=== PATIENT | male | born 1945 | race African-American/Black ===

== ENCOUNTER 2018-08-18 08:58 | Inpatient (IN) | payer BC, MEDICAID ==
[2018-08-18] VITALS (7 sets, daily range): BP systolic 110–158; BP diastolic 64–76
[~2018-08-18] VITALS: Ht 175.3 cm; Wt 61.2 kg
[2018-08-18] MEDS ORDERED: ALBUTEROL (0.083%) 2.5MG/3ML NEB HHN STA (09:03)
[2018-08-18] MEDS ORDERED: MAGNESIUM 2 G PREMIX 50 ML IV STA (09:03)
[2018-08-18] MEDS ORDERED: METHYLPREDNISOLONE SOD SUCC 125 MG/2 ML VIAL IV STA (09:03)
[2018-08-18] MEDS ORDERED: IPRATROPIUM BROMIDE (0.02%) 0.5MG/2.5ML NEB HHN STA (09:03)
[2018-08-18 09:18] LABS: HEMATOCRIT. 28.6 % (42.0-52.0); HEMOGLOBIN. 8.6 g/dL (14.0-18.0); MEAN CORPUSCULAR HEMOGLOBIN 19.7 pg (28.0-32.0); MEAN CORPUSCULAR VOLUME 65.5 fL (80.0-94.0); MEAN PLATELET VOLUME 7.2 fl (7.4-10.4); PLATELET 412 x1000/uL (130-400); RED BLOOD CELL COUNT 4.37 mill/uL (4.7-6.1); RED CELL DISTRIBUTION WIDTH 21.4 % (11.6-14.6)
[2018-08-18 09:26] LABS: CHLORIDE 105 mEq/L (98-107)
[2018-08-18 09:31] LABS: ETHANOL BLOOD < 10 mg/dL
[2018-08-18 09:53] LABS: BG BASE EXCESS -7.4 mmol/L (-2.0-2.0); BG BILEVEL POS AIRWAY PRESSURE 15/5; BG CARBOXYHEMOGLOBIN 0.3 % (0.5-1.5); BG DEOXYHEMOGLOBIN 2.2 % (0.0-5.0); BG METHEMOGLOBIN 0.2 % (0.0-1.5); BG OXYGEN SATURATION 97.8 % (92.0-98.5); BG OXYHEMOGLOBIN 97.3 % (94.0-97.0); BG PCO2 25.6 mmHg (35.0-45.0); BG PH 7.415 (7.350-7.450); BG PO2 115.8 mmHg (75.0-100.0); BG SAMPLE SITE RIGHT RADIAL; BG TOTAL HEMOGLOBIN 9.2 g/dL (12.0-18.0); BG VENT MODE MASK - BIPAP; BG VENT RATE 16 set
[2018-08-18 09:54] LABS: PLATELET ESTIMATE INCREASED
[2018-08-18] MEDS ORDERED: LEVOFLOXACIN 750MG PREMIX 150 ML IV ONE ×2 (12:00→14:00)
[2018-08-18 14:31] LABS: BG BASE EXCESS -8.2 mmol/L (-2.0-2.0); BG BILEVEL POS AIRWAY PRESSURE ST=15/5; BG CARBOXYHEMOGLOBIN 0.5 % (0.5-1.5); BG DEOXYHEMOGLOBIN 3.4 % (0.0-5.0); BG FRACTION INSPIRED OXYGEN 50; BG HCO3 ACT 15.1 mmol/L (22.0-26.0); BG METHEMOGLOBIN 0.2 % (0.0-1.5); BG OXYGEN SATURATION 96.6 % (92.0-98.5); BG OXYHEMOGLOBIN 95.9 % (94.0-97.0); BG PCO2 24.1 mmHg (35.0-45.0); BG PH 7.416 (7.350-7.450); BG PO2 94.3 mmHg (75.0-100.0); BG PRESSURE SUPPORT 10; BG SAMPLE SITE LEFT BRACHIAL; BG TOTAL HEMOGLOBIN 8.6 g/dL (12.0-18.0); BG VENT MODE MASK - BIPAP; BG VENT RATE 16 set
[2018-08-18] MEDS: LEVOFLOXACIN 750MG PREMIX 150 ML IV SCH (15:48)
[2018-08-18] MEDS ORDERED: ONDANSETRON HCL 4MG/2ML INJ IV PRN (18:45)
[2018-08-18] MEDS ORDERED: DOCUSATE SODIUM 100MG CAPSULE PO PRN (18:45)
[2018-08-18] MEDS ORDERED: ACETAMINOPHEN 650MG SUPP PR PRN (18:45)
[2018-08-18] MEDS ORDERED: DIPHENHYDRAMINE 50MG/ML VIAL IV PRN (18:45)
[2018-08-18] MEDS ORDERED: MAGNESIUM/ALUMINUM HYDROXIDE/SIMETHICONE 30ML UDC PO PRN (18:45)
[2018-08-18] MEDS ORDERED: PIPERACILLIN/TAZ 3.375G PREMIX 50 ML IV SCH (18:45)
[2018-08-18] MEDS ORDERED: NA PHOS,M-B/NA PHOS,DI-BA ENEMA 118ML PR PRN (18:45)
[2018-08-18] MEDS ORDERED: IPRATROPIUM/ALBUTEROL 0.5-3(2.5)MG/3ML NEB INH PRN (18:45)
[2018-08-18] MEDS ORDERED: CLONIDINE 0.1MG TABLET PO PRN (18:45)
[2018-08-18] MEDS ORDERED: ACETAMINOPHEN 650MG/20.3ML UDC GT PRN (18:45)
[2018-08-18] MEDS ORDERED: GUAIFENESIN 200MG/10ML SUGAR FREE UDC PO PRN (18:45)
[2018-08-18] MEDS ORDERED: ENOXAPARIN 40MG/0.4ML SYR SUBCUT SCH (20:00)
[2018-08-18] MEDS: PIPERACILLIN/TAZ 2.25G PREMIX 50 ML IV SCH (20:32)
[2018-08-18] MEDS: SODIUM CHLORIDE 0.9% INJ 3ML FLUSH IVF SCH (20:32)
[2018-08-18] MEDS: GUAIFENESIN 600MG ER TABLET PO SCH (20:32)
[2018-08-19] VITALS (12 sets, daily range): BP systolic 111–141; BP diastolic 60–81
[2018-08-19] MEDS: IPRATROPIUM/ALBUTEROL 0.5-3(2.5)MG/3ML NEB INH SCH ×4 (02:31→20:22)
[2018-08-19] MEDS: PIPERACILLIN/TAZ 2.25G PREMIX 50 ML IV SCH ×3 (04:44→20:51)
[2018-08-19] MEDS: SODIUM CHLORIDE 0.9% INJ 3ML FLUSH IVF SCH ×3 (06:00→20:51)
[2018-08-19 06:28] LABS: HEMATOCRIT. 24.9 % (42.0-52.0); HEMOGLOBIN. 7.7 g/dL (14.0-18.0); MEAN CORPUSCULAR HEMOGLOBIN 19.9 pg (28.0-32.0); MEAN CORPUSCULAR VOLUME 64.7 fL (80.0-94.0); MEAN PLATELET VOLUME 7.3 fl (7.4-10.4); PLATELET 347 x1000/uL (130-400); RED BLOOD CELL COUNT 3.85 mill/uL (4.7-6.1); RED CELL DISTRIBUTION WIDTH 21.3 % (11.6-14.6)
[2018-08-19 07:15] LABS: CHLORIDE 106 mEq/L (98-107)
[2018-08-19 07:37] LABS: LDL CHOLESTEROL 27 mg/dL (5-100)
[2018-08-19 07:39] LABS: HDL CHOLESTEROL 19 mg/dL (40-59)
[2018-08-19] MEDS: GUAIFENESIN 600MG ER TABLET PO SCH ×2 (08:47→20:51)
[2018-08-19] MEDS: MORPHINE SULFATE 2 MG/ML CPJ (NOT FOR IM USE) IV PRN (09:24)
[2018-08-19 12:14] LABS: CLARITY URINE CLEAR (CLEAR); COLOR URINE YELLOW (YELLOW); KETONES URINE NEGATIVE (NEGATIVE); LEUKOCYTE ESTERASE URINE NEGATIVE (NEGATIVE); NITRITE URINE NEGATIVE (NEGATIVE); OCCULT BLOOD URINE NEGATIVE (NEGATIVE); PROTEIN URINE NEGATIVE (NEGATIVE); SPECIFIC GRAVITY URINE 1.021 (1.005-1.030); UROBILINOGEN URINE 0.2 E.U./dL (0.2-1.0)
[2018-08-19 12:50] LABS: *AMPHETAMINES SCREEN URINE NEGATIVE (NEGATIVE); *BARBITURATES SCREEN URINE NEGATIVE (NEGATIVE); *BENZODIAZEPINES SCREEN URINE NEGATIVE (NEGATIVE); *COCAINE SCREEN URINE PRESUMTIVE POSITIVE (NEGATIVE)
[2018-08-19 12:51] LABS: CANNABINOID URINE SCREEN NEGATIVE (NEGATIVE); METHADONE URINE SCREEN NEGATIVE (NEGATIVE); OPIATES URINE SCREEN PRESUMTIVE POSITIVE (NEGATIVE); PHENCYCLIDINE URINE SCREEN NEGATIVE (NEGATIVE)
[2018-08-19 12:59] LABS: PLATELET ESTIMATE NORMAL
[2018-08-19] MEDS: METRONIDAZOLE 500MG TABLET PO SCH ×2 (15:58→20:51)
[2018-08-19] MEDS: ENOXAPARIN 30MG/0.3ML SYR SUBCUT SCH (20:51)
[2018-08-20] VITALS (11 sets, daily range): BP systolic 107–134; BP diastolic 66–80
[2018-08-20] MEDS: ACETYLCYSTEINE 100MG/ML 10% VIAL 4ML INH SCH ×3 (00:16→16:13)
[2018-08-20] MEDS: IPRATROPIUM/ALBUTEROL 0.5-3(2.5)MG/3ML NEB INH SCH ×6 (00:16→20:34)
[2018-08-20] MEDS: SODIUM CHLORIDE 0.9% INJ 3ML FLUSH IVF SCH ×3 (05:23→22:00)
[2018-08-20] MEDS: METRONIDAZOLE 500MG TABLET PO SCH ×3 (05:24→21:28)
[2018-08-20] MEDS: PIPERACILLIN/TAZ 2.25G PREMIX 50 ML IV SCH ×3 (05:24→21:17)
[2018-08-20] MEDS: GUAIFENESIN 600MG ER TABLET PO SCH ×2 (08:16→21:17)
[2018-08-20 09:42] LABS: HEMOGLOBIN. 7.3 g/dL (14.0-18.0); MEAN CORPUSCULAR HEMOGLOBIN 19.5 pg (28.0-32.0); MEAN CORPUSCULAR VOLUME 64.2 fL (80.0-94.0); MEAN PLATELET VOLUME 7.1 fl (7.4-10.4); PLATELET 365 x1000/uL (130-400); RED BLOOD CELL COUNT 3.74 mill/uL (4.7-6.1); RED CELL DISTRIBUTION WIDTH 21.2 % (11.6-14.6)
[2018-08-20 09:52] LABS: CHLORIDE 104 mEq/L (98-107)
[2018-08-20 13:11] LABS: NUCLEATED RED BLOOD CELLS 2 /100 WBC; PLATELET ESTIMATE NORMAL
[2018-08-20] MEDS: LEVOFLOXACIN 750MG PREMIX 150 ML IV SCH (15:50)
[2018-08-20 18:21] LABS: PROSTRATE SPECIFIC AG TOTAL 0.44 ng/mL (0.0-4.0)
[2018-08-20 18:22] LABS: CARCINO EMBRYONIC ANTIGEN 1.2 ng/ml
[2018-08-20] MEDS: ENOXAPARIN 30MG/0.3ML SYR SUBCUT SCH (21:24)
[2018-08-20] MEDS: MORPHINE SULFATE 2 MG/ML CPJ (NOT FOR IM USE) IV PRN (21:29)
[2018-08-21] VITALS (16 sets, daily range): BP systolic 103–154; BP diastolic 51–99
[2018-08-21] MEDS: IPRATROPIUM/ALBUTEROL 0.5-3(2.5)MG/3ML NEB INH SCH ×6 (00:28→20:13)
[2018-08-21] MEDS: ACETYLCYSTEINE 100MG/ML 10% VIAL 4ML INH SCH ×3 (00:28→16:40)
[2018-08-21] MEDS: PIPERACILLIN/TAZ 2.25G PREMIX 50 ML IV SCH ×2 (04:51→13:05)
[2018-08-21] MEDS: SODIUM CHLORIDE 0.9% INJ 3ML FLUSH IVF SCH ×3 (05:45→21:48)
[2018-08-21] MEDS: METRONIDAZOLE 500MG TABLET PO SCH ×3 (05:45→23:41)
[2018-08-21] MEDS: GUAIFENESIN 600MG ER TABLET PO SCH ×2 (10:25→21:47)
[2018-08-21 14:49] LABS: BG CARBOXYHEMOGLOBIN 0.5 % (0.5-1.5); BG DEOXYHEMOGLOBIN 11.4 % (0.0-5.0); BG FRACTION INSPIRED OXYGEN 21; BG METHEMOGLOBIN 0.4 % (0.0-1.5); BG OXYGEN SATURATION 88.5 % (92.0-98.5); BG OXYHEMOGLOBIN 87.7 % (94.0-97.0); BG PCO2 29.1 mmHg (35.0-45.0); BG PH 7.476 (7.350-7.450); BG PO2 57.6 mmHg (75.0-100.0); BG SAMPLE SITE RIGHT RADIAL; BG TOTAL HEMOGLOBIN 8.9 g/dL (12.0-18.0); BG VENT MODE ROOM AIR
[2018-08-21] MEDS: ENOXAPARIN 30MG/0.3ML SYR SUBCUT SCH (21:48)
[2018-08-21] MEDS: ACETAMINOPHEN 325MG TABLET PO PRN (21:59)
[2018-08-21] MEDS ORDERED: LEVOFLOXACIN 750MG PREMIX 150 ML IV SCH (23:00)
[2018-08-22] VITALS: BP 77/53
[2018-08-22] MEDS: PIPERACILLIN/TAZ 3.375G PREMIX 50 ML IV SCH ×4 (01:08→22:59)
[2018-08-22 02:00] VITALS: BP 124/59
[2018-08-22] MEDS: HYDROCODONE/ACETAMINOPHEN 5/325MG TABLET PO PRN ×3 (03:36→14:14)
[2018-08-22 04:00] VITALS: BP 113/57
[2018-08-22] MEDS: IPRATROPIUM/ALBUTEROL 0.5-3(2.5)MG/3ML NEB INH SCH ×6 (04:03→20:43)
[2018-08-22 06:00] VITALS: BP 103/52
[2018-08-22] MEDS: SODIUM CHLORIDE 0.9% INJ 3ML FLUSH IVF SCH ×3 (06:01→21:16)
[2018-08-22] MEDS: METRONIDAZOLE 500MG TABLET PO SCH ×3 (06:02→21:16)
[2018-08-22] MEDS: ACETYLCYSTEINE 100MG/ML 10% VIAL 4ML INH SCH ×3 (08:00→15:10)
[2018-08-22 09:32] LABS: BASOPHILS % 0.1 % (0.0-2.0); EOSINOPHILS % 0.7 % (0.0-5.0); HEMATOCRIT. 25.7 % (42.0-52.0); HEMOGLOBIN. 7.8 g/dL (14.0-18.0); LYMPHOCYTES % 7.2 % (20.0-50.0); MEAN CORPUSCULAR HEMOGLOBIN 19.8 pg (28.0-32.0); MEAN CORPUSCULAR VOLUME 64.9 fL (80.0-94.0); MONOCYTES % 13.5 % (2.0-8.0); NEUTROPHILS % 78.5 % (40.0-76.0); PLATELET 419 x1000/uL (130-400); RED BLOOD CELL COUNT 3.97 mill/uL (4.7-6.1); RED CELL DISTRIBUTION WIDTH 21.3 % (11.6-14.6)
[2018-08-22] MEDS: GUAIFENESIN 600MG ER TABLET PO SCH ×2 (10:54→21:16)
[2018-08-22] MEDS: FAMOTIDINE 20MG TABLET PO NR (13:26)
[2018-08-22 20:00] VITALS: BP 119/63
[2018-08-22] MEDS: ENOXAPARIN 30MG/0.3ML SYR SUBCUT SCH (21:16)
[2018-08-22 22:00] VITALS: BP_SYST 98; BP_DIAS 29; BP_DIAS 52
[2018-08-23] VITALS (12 sets, daily range): BP systolic 93–143; BP diastolic 49–63
[2018-08-23] MEDS: IPRATROPIUM/ALBUTEROL 0.5-3(2.5)MG/3ML NEB INH SCH ×6 (00:43→20:39)
[2018-08-23] MEDS: ACETYLCYSTEINE 100MG/ML 10% VIAL 4ML INH SCH ×4 (00:43→15:55)
[2018-08-23] MEDS: SODIUM CHLORIDE 0.9% INJ 3ML FLUSH IVF SCH ×3 (05:22→21:58)
[2018-08-23] MEDS: METRONIDAZOLE 500MG TABLET PO SCH ×3 (05:23→22:01)
[2018-08-23] MEDS: GUAIFENESIN 600MG ER TABLET PO SCH ×2 (08:35→21:58)
[2018-08-23] MEDS: FAMOTIDINE 20MG TABLET PO NR (08:35)
[2018-08-23] MEDS: PIPERACILLIN/TAZ 3.375G PREMIX 50 ML IV SCH ×3 (08:36→21:58)
[2018-08-23] MEDS ORDERED: VANCOMYCIN 1250MG in DEXTROSE 5% WATER 250ML IV SCH (09:00)
[2018-08-23] MEDS: ACETAMINOPHEN 325MG TABLET PO PRN ×2 (11:39→19:24)
[2018-08-23 12:18] LABS: HEMOGLOBIN. 7.6 g/dL (14.0-18.0); MEAN CORPUSCULAR HEMOGLOBIN 19.6 pg (28.0-32.0); MEAN CORPUSCULAR VOLUME 64.1 fL (80.0-94.0); MEAN PLATELET VOLUME 6.8 fl (7.4-10.4); PLATELET 418 x1000/uL (130-400); RED CELL DISTRIBUTION WIDTH 21.6 % (11.6-14.6)
[2018-08-23 12:31] LABS: CHLORIDE 100 mEq/L (98-107)
[2018-08-23 16:22] LABS: PLATELET ESTIMATE INCREASED
[2018-08-23] MEDS: ENOXAPARIN 30MG/0.3ML SYR SUBCUT SCH (20:00)
[2018-08-23] MEDS ORDERED: VANCOMYCIN 750 MG PREMIX 150 ML IV SCH (21:00)
[2018-08-23] MEDS: VANCOMYCIN 1 G PREMIX 200 ML IV SCH (21:57)
[2018-08-24] VITALS (10 sets, daily range): BP systolic 81–120; BP diastolic 45–69
[2018-08-24] MEDS: IPRATROPIUM/ALBUTEROL 0.5-3(2.5)MG/3ML NEB INH SCH ×7 (00:52→23:41)
[2018-08-24] MEDS: METRONIDAZOLE 500MG TABLET PO SCH ×3 (05:43→21:55)
[2018-08-24] MEDS: PIPERACILLIN/TAZ 3.375G PREMIX 50 ML IV SCH ×2 (05:43→16:15)
[2018-08-24] MEDS: SODIUM CHLORIDE 0.9% INJ 3ML FLUSH IVF SCH ×3 (05:44→22:07)
[2018-08-24] MEDS: ACETYLCYSTEINE 100MG/ML 10% VIAL 4ML INH SCH ×2 (07:41→15:45)
[2018-08-24] MEDS: GUAIFENESIN 600MG ER TABLET PO SCH ×2 (08:34→21:55)
[2018-08-24] MEDS: VANCOMYCIN 1 G PREMIX 200 ML IV SCH ×2 (08:34→21:55)
[2018-08-24] MEDS: FAMOTIDINE 20MG TABLET PO NR (08:34)
[2018-08-24] MEDS: ACETAMINOPHEN 325MG TABLET PO PRN (08:49)
[2018-08-24] MEDS ORDERED: PIPE3.3736 IV (15:21)
[2018-08-24] MEDS ORDERED: IPRA3AMP9 INH ×2 (15:21)
[2018-08-24] MEDS: ENOXAPARIN 30MG/0.3ML SYR SUBCUT SCH (20:00)
[2018-08-24] MEDS: HYDROCODONE/ACETAMINOPHEN 5/325MG TABLET PO PRN (22:06)
[2018-08-25] VITALS (9 sets, daily range): BP systolic 90–118; BP diastolic 46–86
[2018-08-25] MEDS: PIPERACILLIN/TAZ 3.375G PREMIX 50 ML IV SCH ×3 (02:24→14:23)
[2018-08-25] MEDS: IPRATROPIUM/ALBUTEROL 0.5-3(2.5)MG/3ML NEB INH SCH ×3 (04:26→20:35)
[2018-08-25] MEDS: SODIUM CHLORIDE 0.9% INJ 3ML FLUSH IVF SCH ×2 (06:14→21:54)
[2018-08-25] MEDS: METRONIDAZOLE 500MG TABLET PO SCH ×3 (06:14→21:53)
[2018-08-25 08:15] LABS: HIV SCREEN 4G Non Reactive (Non Reactive)
[2018-08-25] MEDS: GUAIFENESIN 600MG ER TABLET PO SCH ×2 (08:15→20:34)
[2018-08-25] MEDS: FAMOTIDINE 20MG TABLET PO NR (08:15)
[2018-08-25] MEDS: VANCOMYCIN 1 G PREMIX 200 ML IV SCH ×2 (08:15→21:53)
[2018-08-25] MEDS: ACETYLCYSTEINE 100MG/ML 10% VIAL 4ML INH SCH (08:35)
[2018-08-25] MEDS: ENOXAPARIN 30MG/0.3ML SYR SUBCUT SCH (20:34)
[2018-08-25] MEDS: ACETAMINOPHEN 325MG TABLET PO PRN (20:35)
[2018-08-26] VITALS: BP 93/55
[2018-08-26] MEDS: IPRATROPIUM/ALBUTEROL 0.5-3(2.5)MG/3ML NEB INH SCH ×6 (00:40→21:01)
[2018-08-26 04:00] VITALS: BP 106/51
[2018-08-26] MEDS: SODIUM CHLORIDE 0.9% INJ 3ML FLUSH IVF SCH ×3 (05:16→21:47)
[2018-08-26] MEDS: METRONIDAZOLE 500MG TABLET PO SCH ×2 (05:16→14:56)
[2018-08-26] MEDS: HYDROCODONE/ACETAMINOPHEN 5/325MG TABLET PO PRN ×2 (05:17→21:45)
[2018-08-26 08:03] VITALS: BP_SYST 114; BP_SYST 88; BP_DIAS 49; BP_DIAS 52
[2018-08-26] MEDS: GUAIFENESIN 600MG ER TABLET PO SCH ×2 (08:59→21:45)
[2018-08-26] MEDS: VANCOMYCIN 1 G PREMIX 200 ML IV SCH ×2 (08:59→21:48)
[2018-08-26] MEDS: FAMOTIDINE 20MG TABLET PO NR (08:59)
[2018-08-26 12:19] VITALS: BP 99/52
[2018-08-26] MEDS: CEFEPIME 2,000 MG in DEXT 5% WATER 100 ML IV SCH (16:23)
[2018-08-26 20:00] VITALS: BP 108/52
[2018-08-26] MEDS: ENOXAPARIN 30MG/0.3ML SYR SUBCUT SCH (21:47)
[2018-08-27] VITALS: BP 104/55
[2018-08-27] MEDS: IPRATROPIUM/ALBUTEROL 0.5-3(2.5)MG/3ML NEB INH SCH ×6 (00:48→22:24)
[2018-08-27 04:00] VITALS: BP 107/59
[2018-08-27] MEDS: CEFEPIME 2,000 MG in DEXT 5% WATER 100 ML IV SCH ×2 (05:14→16:08)
[2018-08-27] MEDS: SODIUM CHLORIDE 0.9% INJ 3ML FLUSH IVF SCH ×3 (05:31→22:32)
[2018-08-27 08:00] VITALS: BP 100/52
[2018-08-27] MEDS: FAMOTIDINE 20MG TABLET PO NR (09:19)
[2018-08-27] MEDS: GUAIFENESIN 600MG ER TABLET PO SCH ×2 (09:19→20:40)
[2018-08-27] MEDS: VANCOMYCIN 1 G PREMIX 200 ML IV SCH ×2 (09:25→20:48)
[2018-08-27 12:00] VITALS: BP 106/59
[2018-08-27] MEDS: METRONIDAZOLE 500 MG PREMIX 100 ML IV SCH ×2 (13:49→22:32)
[2018-08-27 16:00] VITALS: BP 100/53
[2018-08-27 20:00] VITALS: BP 105/54
[2018-08-27] MEDS: HYDROCODONE/ACETAMINOPHEN 5/325MG TABLET PO PRN (20:40)
[2018-08-27] MEDS: ENOXAPARIN 30MG/0.3ML SYR SUBCUT SCH (20:40)
[2018-08-28] VITALS: BP 103/60
[2018-08-28] MEDS: IPRATROPIUM/ALBUTEROL 0.5-3(2.5)MG/3ML NEB INH SCH ×6 (01:12→20:26)
[2018-08-28 04:00] VITALS: BP 102/55
[2018-08-28] MEDS: CEFEPIME 2,000 MG in DEXT 5% WATER 100 ML IV SCH ×2 (04:15→16:19)
[2018-08-28] MEDS: HYDROCODONE/ACETAMINOPHEN 5/325MG TABLET PO PRN ×3 (04:26→21:10)
[2018-08-28] MEDS: METRONIDAZOLE 500 MG PREMIX 100 ML IV SCH ×3 (06:23→22:45)
[2018-08-28] MEDS: SODIUM CHLORIDE 0.9% INJ 3ML FLUSH IVF SCH ×3 (06:23→22:45)
[2018-08-28 07:27] LABS: EOSINOPHILS % 0.2 % (0.0-5.0); HEMATOCRIT. 22.3 % (42.0-52.0); LYMPHOCYTES % 12.6 % (20.0-50.0); MEAN CORPUSCULAR HEMOGLOBIN 20.1 pg (28.0-32.0); MEAN CORPUSCULAR VOLUME 64.7 fL (80.0-94.0); MEAN PLATELET VOLUME 6.9 fl (7.4-10.4); MONOCYTES % 11.2 % (2.0-8.0); PLATELET 559 x1000/uL (130-400); RED BLOOD CELL COUNT 3.44 mill/uL (4.7-6.1); RED CELL DISTRIBUTION WIDTH 21.9 % (11.6-14.6)
[2018-08-28 07:45] LABS: CHLORIDE 105 mEq/L (98-107)
[2018-08-28 08:00] VITALS: BP 94/57
[2018-08-28 08:45] LABS: HEMOGLOBIN. 6.9 g/dL (14.0-18.0)
[2018-08-28] MEDS: FAMOTIDINE 20MG TABLET PO NR (09:19)
[2018-08-28] MEDS: GUAIFENESIN 600MG ER TABLET PO SCH ×2 (09:19→21:10)
[2018-08-28] MEDS: VANCOMYCIN 1 G PREMIX 200 ML IV SCH ×2 (09:24→21:11)
[2018-08-28 12:00] VITALS: BP 104/61
[2018-08-28 16:00] VITALS: BP 102/53
[2018-08-28 20:00] VITALS: BP 103/53
[2018-08-28] MEDS: ENOXAPARIN 30MG/0.3ML SYR SUBCUT SCH (21:10)
[2018-08-29] VITALS (10 sets, daily range): BP systolic 93–124; BP diastolic 48–64
[2018-08-29] MEDS: IPRATROPIUM/ALBUTEROL 0.5-3(2.5)MG/3ML NEB INH SCH ×5 (00:08→17:10)
[2018-08-29] MEDS: HYDROCODONE/ACETAMINOPHEN 5/325MG TABLET PO PRN (04:12)
[2018-08-29] MEDS: CEFEPIME 2,000 MG in DEXT 5% WATER 100 ML IV SCH ×2 (04:12→16:39)
[2018-08-29] MEDS: SODIUM CHLORIDE 0.9% INJ 3ML FLUSH IVF SCH ×2 (06:36→15:24)
[2018-08-29] MEDS: METRONIDAZOLE 500 MG PREMIX 100 ML IV SCH (06:36)
[2018-08-29 07:10] LABS: EOSINOPHILS % 0.2 % (0.0-5.0); LYMPHOCYTES % 12.9 % (20.0-50.0); MEAN CORPUSCULAR HEMOGLOBIN 19.7 pg (28.0-32.0); MEAN CORPUSCULAR VOLUME 65.5 fL (80.0-94.0); MEAN PLATELET VOLUME 6.5 fl (7.4-10.4); MONOCYTES % 10.8 % (2.0-8.0); NEUTROPHILS % 75.1 % (40.0-76.0); PLATELET 589 x1000/uL (130-400); RED BLOOD CELL COUNT 3.55 mill/uL (4.7-6.1); RED CELL DISTRIBUTION WIDTH 21.4 % (11.6-14.6)
[2018-08-29] MEDS ORDERED: HYDROCODONE/ACETAMINOPHEN 5/325MG TABLET PO PRN (07:15)
[2018-08-29 07:16] LABS: CHLORIDE 102 mEq/L (98-107)
[2018-08-29 08:05] LABS: HEMATOCRIT. 23.2 % (42.0-52.0)
[2018-08-29] MEDS: VANCOMYCIN 1 G PREMIX 200 ML IV SCH (09:35)
[2018-08-29] MEDS: GUAIFENESIN 600MG ER TABLET PO SCH (09:35)
[2018-08-29] MEDS: FAMOTIDINE 20MG TABLET PO NR (09:35)
[2018-08-29] MEDS: ACETAMINOPHEN 325MG TABLET PO PRN (13:29)
[2018-08-29] MEDS ORDERED: METRONIDAZOLE 500MG TABLET PO SCH (14:00)
[2018-08-29 17:38] LABS: HEMATOCRIT 24.4 % (42.0-52.0); HEMOGLOBIN 7.6 g/dL (14.0-18.0)
[2018-08-29 18:17] LABS: INR 1.1; PROTHROMBIN TIME 11.4 sec (9.6-11.0)
[2018-08-30 09:11] LABS: QFT MITOGEN VALUE 1.12 IU/mL (.); QFT TB GOLD PLUS Positive (Negative); QFT TB1 AG VALUE 4.42 IU/mL (.)
== END 2018-08-29 21:08 | DRG 917 ==
LOC: ER 08:58 → 5EST 09:25 → EDBEDREQ 09:54 → EDBEDREQTM 09:54 → ENRESERV 10:34 → 5WST 08-25 17:22
PROVIDERS: ADMIT Family Medicine; ATTEND Family Medicine
PROC: 5A09357 Assistance with Respiratory Ventilation, Less than 24 Consecutive Hours, Continuous Positive Airway Pressure (ICD-10-PCS; principal; 2018-08-18)
PROC: 5A09357 Assistance with Respiratory Ventilation, Less than 24 Consecutive Hours, Continuous Positive Airway Pressure (ICD-10-PCS; 2018-08-19)
PROC: 5A09357 Assistance with Respiratory Ventilation, Less than 24 Consecutive Hours, Continuous Positive Airway Pressure (ICD-10-PCS; 2018-08-23)
PROC: 5A09357 Assistance with Respiratory Ventilation, Less than 24 Consecutive Hours, Continuous Positive Airway Pressure (ICD-10-PCS; 2018-08-24)
DX: T40.5X1A Poisoning by cocaine, accidental (unintentional), initial encounter (principal); A41.9 Sepsis, unspecified organism; E43 Unspecified severe protein-calorie malnutrition; J96.01 Acute respiratory failure with hypoxia; N17.9 Acute kidney failure, unspecified; I50.40 Unspecified combined systolic (congestive) and diastolic (congestive) heart failure; J68.0 Bronchitis and pneumonitis due to chemicals, gases, fumes and vapors; J98.11 Atelectasis; Z68.1 Body mass index [BMI] 19.9 or less, adult; D63.8 Anemia in other chronic diseases classified elsewhere; I11.0 Hypertensive heart disease with heart failure; F14.90 Cocaine use, unspecified, uncomplicated; F17.210 Nicotine dependence, cigarettes, uncomplicated; Z78.9 Other specified health status; Z71.89 Other specified counseling
CPT/HCPCS: 36415; 36600; 71045; 71250; 80048; 80061; 80202; 80305; 80320; 82105; 82375; 82378; 82805; 83880; 84153; 84484; 85014; 85018; 85049; 85384; 86480; 86850; 86900; 86920; 87070; 87116; 87389; 93005; 94618; 94640; 94644; 94660; 97162; 97164; 97535; 99285; A6261; J0692; J1650; J1956; J2270; J2543; J2930; J3370; J3475; J3490; J7040; J7050; J7060; J7608; J7611; J7620; P9016; G0103; G0480

== ENCOUNTER 2019-03-27 19:00 | Inpatient (IN) | payer BC, MEDICAID ==
[~2019-03-27] VITALS: Ht 175.3 cm; Wt 73.0 kg
[~2019-03-27 19:00] MED LIST: IPRA3AMP9 INH; PIPE3.3736 IV
[2019-03-27] MEDS ORDERED: ASPIRIN 81MG TABLET PO ONE (23:45)
[2019-03-28 00:37] LABS: BASOPHILS % 0.9 % (0.0-2.0); EOSINOPHILS % 1.7 % (0.0-5.0); HEMATOCRIT. 21.9 % (42.0-52.0); LYMPHOCYTES % 35.3 % (20.0-50.0); MEAN CORPUSCULAR HEMOGLOBIN 19.8 pg (28.0-32.0); MEAN CORPUSCULAR VOLUME 66.5 fL (80.0-94.0); MONOCYTES % 14.7 % (2.0-8.0); NEUTROPHILS % 47.4 % (40.0-76.0); PLATELET 293 x1000/uL (130-400)
[2019-03-28 00:42] LABS: CHLORIDE 111 mEq/L (98-107)
[2019-03-28 00:45] LABS: HEMOGLOBIN. 6.5 g/dL (14.0-18.0)
[2019-03-28 00:48] LABS: PLATELET ESTIMATE NORMAL
[2019-03-28] MEDS ORDERED: PANTOPRAZOLE 40MG DR TABLET PO ONE (02:00)
[2019-03-28] MEDS ORDERED: CLONIDINE 0.2MG TABLET PO PRN (05:30)
[2019-03-28] MEDS ORDERED: ONDANSETRON HCL 4MG/2ML INJ IV PRN (13:30)
[2019-03-28] MEDS ORDERED: ACETAMINOPHEN 325MG TABLET PO PRN (13:30)
[2019-03-28] MEDS ORDERED: IPRATROPIUM/ALBUTEROL 0.5-3(2.5)MG/3ML NEB HHN PRN (13:30)
[2019-03-28 14:58] VITALS: BP 137/72
[2019-03-28] MEDS ORDERED: KETOROLAC 15MG/ML VIAL IV PRN (15:15)
[2019-03-28 16:31] LABS: BASOPHILS % 0.6 % (0.0-2.0); EOSINOPHILS % 1.2 % (0.0-5.0); HEMATOCRIT. 30.1 % (42.0-52.0); HEMOGLOBIN. 9.2 g/dL (14.0-18.0); MEAN CORPUSCULAR HEMOGLOBIN 21.8 pg (28.0-32.0); MEAN CORPUSCULAR VOLUME 71.1 fL (80.0-94.0); MEAN PLATELET VOLUME 6.6 fl (7.4-10.4); MONOCYTES % 11.6 % (2.0-8.0); NEUTROPHILS % 61.6 % (40.0-76.0); PLATELET 312 x1000/uL (130-400); RED BLOOD CELL COUNT 4.23 mill/uL (4.7-6.1); RED CELL DISTRIBUTION WIDTH 23.9 % (11.6-14.6)
[2019-03-28 16:46] LABS: TOTAL IRON BINDING CAPACITY 534 ug/dL (250-450)
[2019-03-28 20:00] VITALS: BP 140/66
[2019-03-28 20:55] LABS: INR 0.9
[2019-03-28] MEDS: PANTOPRAZOLE SODIUM 40 MG/VIAL IV SCH (21:34)
[2019-03-28] MEDS: AMLODIPINE 5MG TABLET PO SCH (21:34)
[2019-03-28] MEDS: BUDESONIDE 0.5MG/2ML NEB HHN SCH (23:54)
[2019-03-29] VITALS: BP 136/70
[2019-03-29 04:00] VITALS: BP 138/70
[2019-03-29 08:00] VITALS: BP 128/75
[2019-03-29 08:09] LABS: BASOPHILS % 0.7 % (0.0-2.0); EOSINOPHILS % 0.6 % (0.0-5.0); HEMATOCRIT. 30.1 % (42.0-52.0); HEMOGLOBIN. 9.2 g/dL (14.0-18.0); LYMPHOCYTES % 20.6 % (20.0-50.0); MEAN CORPUSCULAR HEMOGLOBIN 21.5 pg (28.0-32.0); MEAN PLATELET VOLUME 6.6 fl (7.4-10.4); MONOCYTES % 11.9 % (2.0-8.0); NEUTROPHILS % 66.2 % (40.0-76.0); PLATELET 303 x1000/uL (130-400); RED CELL DISTRIBUTION WIDTH 24.5 % (11.6-14.6)
[2019-03-29 08:49] LABS: VITAMIN B12 SERUM 286 pg/mL (211-911)
[2019-03-29] MEDS: PANTOPRAZOLE SODIUM 40 MG/VIAL IV SCH (08:53)
[2019-03-29] MEDS: FERROUS SULFATE 325MG TABLET PO SCH ×3 (08:53→18:01)
[2019-03-29] MEDS: AMLODIPINE 5MG TABLET PO SCH (08:53)
[2019-03-29] MEDS ORDERED: LOSARTAN POTASSIUM 25 MG TABLET PO SCH (09:00)
[2019-03-29 09:08] LABS: CHLORIDE 110 mEq/L (98-107)
[2019-03-29] MEDS: BUDESONIDE 0.5MG/2ML NEB HHN SCH (09:46)
[2019-03-29 10:47] LABS: CLARITY URINE CLEAR (CLEAR); COLOR URINE YELLOW (YELLOW); KETONES URINE NEGATIVE (NEGATIVE); LEUKOCYTE ESTERASE URINE NEGATIVE (NEGATIVE); NITRITE URINE NEGATIVE (NEGATIVE); OCCULT BLOOD URINE NEGATIVE (NEGATIVE); PROTEIN URINE NEGATIVE (NEGATIVE); SPECIFIC GRAVITY URINE 1.013 (1.005-1.030); UROBILINOGEN URINE 0.2 E.U./dL (0.2-1.0)
[2019-03-29 10:59] LABS: *AMPHETAMINES SCREEN URINE NEGATIVE (NEGATIVE); *COCAINE SCREEN URINE PRESUMTIVE POSITIVE (NEGATIVE)
[2019-03-29 11:06] LABS: *BENZODIAZEPINES SCREEN URINE NEGATIVE (NEGATIVE); CANNABINOID URINE SCREEN NEGATIVE (NEGATIVE); OPIATES URINE SCREEN NEGATIVE (NEGATIVE); PHENCYCLIDINE URINE SCREEN NEGATIVE (NEGATIVE)
[2019-03-29 11:07] LABS: *BARBITURATES SCREEN URINE NEGATIVE (NEGATIVE); METHADONE URINE SCREEN NEGATIVE (NEGATIVE)
[2019-03-29 12:00] VITALS: BP 132/65
[2019-03-29 16:00] VITALS: BP 131/74
[2019-03-29 17:31] VITALS: BP 131/74
[2019-03-30 15:09] LABS: FOLATE RBC 1365 ng/mL (>498)
== END 2019-03-29 18:33 | disposition home or self-care (01) | DRG 206 ==
LOC: ER 19:00 → 5WST 03-28 02:35 → ENRESERV 03-28 12:20
PROVIDERS: ADMIT Internal Medicine; ATTEND Internal Medicine
PROC: 30233N1 Transfusion of Nonautologous Red Blood Cells into Peripheral Vein, Percutaneous Approach (ICD-10-PCS; principal; 2019-03-28)
DX: M94.0 Chondrocostal junction syndrome [Tietze] (principal); E44.1 Mild protein-calorie malnutrition; R07.89 Other chest pain; D50.9 Iron deficiency anemia, unspecified; E87.8 Other disorders of electrolyte and fluid balance, not elsewhere classified; F14.90 Cocaine use, unspecified, uncomplicated; F17.210 Nicotine dependence, cigarettes, uncomplicated; I11.9 Hypertensive heart disease without heart failure; J44.9 Chronic obstructive pulmonary disease, unspecified; Z87.01 Personal history of pneumonia (recurrent); Z68.23 Body mass index [BMI] 23.0-23.9, adult; Z79.899 Other long term (current) drug therapy
CPT/HCPCS: 36415; 71045; 80048; 80053; 80061; 80305; 81003; 82607; 82728; 82747; 83540; 83550; 83880; 84145; 84484; 85014; 85025; 86850; 86900; 86920; 93005; 93306; 99285; C9113; J7626; P9016

== ENCOUNTER 2022-02-22 10:20 | Emergency (ER) | payer OTHER, MEDICAID ==
[~2022-02-22] VITALS: Ht 172.7 cm; Wt 59.0 kg
[~2022-02-22 10:20] MED LIST changes: +ALBU18HF2 IH; +DOCU-138 MT; +FERR325T23 MT; +FLUT1DIS3 INH; -IPRA3AMP9 INH; +OMEP40CA20 MT; -PIPE3.3736 IV
[2022-02-22] MEDS ORDERED: IBUPROFEN 600MG TABLET PO ONE (11:15)
[2022-02-22] MEDS ORDERED: IBUP-2029 MT (11:19)
[2022-02-22 11:34] VITALS: BP 128/68
== END 2022-02-22 12:10 | disposition home or self-care (01) ==
LOC: ER 10:20
DX: M79.81 Nontraumatic hematoma of soft tissue (principal); I49.9 Cardiac arrhythmia, unspecified
CPT/HCPCS: 93005; 99283

== ENCOUNTER 2022-05-27 19:15 | Emergency (ER) | payer OTHER, MEDICAID ==
[~2022-05-27] VITALS: Ht 170.2 cm; Wt 68.0 kg
[~2022-05-27 19:15] MED LIST changes: +IBUP-2029 MT
[2022-05-27] MEDS ORDERED: IPRATROPIUM BROMIDE (0.02%) 0.5MG/2.5ML NEB HHN STA (19:39)
[2022-05-27] MEDS ORDERED: ALBUTEROL (0.083%) 2.5MG/3ML NEB HHN STA (19:39)
[2022-05-27] MEDS ORDERED: PREDNISONE 20MG TABLET PO STA (19:39)
[2022-05-27 20:16] LABS: BASOPHILS % 0.7 % (0.0-2.0); EOSINOPHILS % 1.4 % (0.0-5.0); HEMOGLOBIN. 8.1 g/dL (14.0-18.0); LYMPHOCYTES % 21.5 % (20.0-50.0); MEAN CORPUSCULAR HEMOGLOBIN 24.1 pg (28.0-32.0); MEAN CORPUSCULAR VOLUME 77.5 fL (80.0-94.0); MEAN PLATELET VOLUME 5.9 fl (7.4-10.4); MONOCYTES % 13.4 % (2.0-8.0); PLATELET 271 x1000/uL (130-400); RED BLOOD CELL COUNT 3.35 mill/uL (4.7-6.1); RED CELL DISTRIBUTION WIDTH 27.7 % (11.6-14.6)
[2022-05-27 20:19] LABS: CHLORIDE 112 mEq/L (98-107)
[2022-05-27 20:30] LABS: ETHANOL BLOOD < 10 mg/dL
[2022-05-27] MEDS ORDERED: IPRATROPIUM BROMIDE (0.02%) 0.5MG/2.5ML NEB HHN NR (21:30)
[2022-05-27] MEDS ORDERED: PREDNISONE 20MG TABLET PO NR (21:30)
[2022-05-27] MEDS ORDERED: ALBUTEROL (0.083%) 2.5MG/3ML NEB HHN NR (21:30)
[2022-05-27] MEDS ORDERED: ALBU6.7H15 INH (21:32)
[2022-05-27] MEDS ORDERED: P20 MT (21:32)
[2022-05-27] MEDS ORDERED: GUAI600T26 MT (21:32)
[2022-05-27 23:31] LABS: PLATELET ESTIMATE NORMAL
[2022-05-28 00:51] VITALS: BP 145/78
== END 2022-05-28 00:53 | disposition home or self-care (01) ==
LOC: ER 19:15
DX: J44.1 Chronic obstructive pulmonary disease with (acute) exacerbation (principal); D64.9 Anemia, unspecified; F17.200 Nicotine dependence, unspecified, uncomplicated; Z20.822 Contact with and (suspected) exposure to COVID-19
CPT/HCPCS: 36415; 71045; 80053; 80320; 83690; 83880; 84484; 85025; 87426; 93005; 94640; 99285; C9803; J7512; G0480

== ENCOUNTER 2022-09-15 14:42 | Inpatient (IN) | payer MEDICARE, MEDICAID ==
[~2022-09-15] VITALS: Ht 175.3 cm; Wt 72.6 kg
[~2022-09-15 14:42] MED LIST changes: +ALBU6.7H15 INH; +AMLO5TAB88 PO; +CLON1PAT10 TD; +DOCU-150 PO; +GABA-529 PO; +GUAI600T26 MT; +KEPP500 MT; +MIDO5TAB4 PO; +MOM PO; +NICO-645 TD; +P20 MT
[2022-09-15 15:23] LABS: BASOPHILS % 0.3 % (0.0-2.0); EOSINOPHILS % 0.7 % (0.0-5.0); HEMATOCRIT. 35.9 % (42.0-52.0); LYMPHOCYTES % 10.6 % (20.0-50.0); MEAN CORPUSCULAR HEMOGLOBIN 26.1 pg (28.0-32.0); MEAN CORPUSCULAR HGB CONC 30.6 g/dL (31.0-37.0); MEAN CORPUSCULAR VOLUME 85.4 fL (80.0-94.0); MONOCYTES % 9.2 % (2.0-8.0); NEUTROPHILS % 79.2 % (40.0-76.0); PLATELET 229 x1000/uL (130-400); RED BLOOD CELL COUNT 4.21 mill/uL (4.7-6.1); WHITE BLOOD COUNT 5.7 x1000/uL (4.5-11.0)
[2022-09-15 15:24] LABS: ADD RBC MORPHOLOGY YES; DIFFERENTIAL COMMENT 1
[2022-09-15 15:29] LABS: CHLORIDE 111 mEq/L (98-107); INDEX HEMOLYSI 1 (1-3); INDEX ICTERIC 1 (1-4); INDEX LIPEMIC 1 (1-3); POTASSIUM 3.8 mEq/L (3.5-5.1); SODIUM 144 mEq/L (136-145)
[2022-09-15 15:38] LABS: ALBUMIN 3.5 g/dL (3.4-5.0); ASPARTATE AMINOTRANSFERASE 66 IU/L (15-37); BILIRUBIN TOTAL 0.6 mg/dL (0.1-1.0); CARBON DIOXIDE 20 mEq/L (21-32); CREATININE 1.2 mg/dL (0.6-1.3); GLUCOSE 98 mg/dL (70-105); NT PRO B-TYPE NATRIURETIC PEP 404 pg/mL (5-125); TROPONIN I HIGH SENSITIVITY 51 ng/L (<78); UREA NITROGEN BLOOD 26 mg/dL (7-21)
[2022-09-15 15:54] LABS: ANISOCYTOSIS 2+; PLATELET ESTIMATE NORMAL
[2022-09-15 16:25] LABS: ALANINE AMINOTRANSFERASE 97 IU/L (13-61); CALCIUM 8.9 mg/dL (8.5-10.1)
[2022-09-15 17:22] LABS: INDEX HEMOLYSI 1 (1-3)
[2022-09-15 17:29] LABS: CREATINE KINASE 219 IU/L (39-308)
[2022-09-15] MEDS ORDERED: DEXTROSE 50% WATER 50ML SYRINGE IV PRN (18:45)
[2022-09-15] MEDS ORDERED: DOCUSATE SODIUM 100MG CAPSULE PO PRN (18:45)
[2022-09-15] MEDS ORDERED: MAGNESIUM/ALUMINUM HYDROXIDE/SIMETHICONE 30ML UDC PO PRN (18:45)
[2022-09-15] MEDS ORDERED: ACETAMINOPHEN 325MG TABLET PO PRN (18:45)
[2022-09-15 19:24] LABS: PHOSPHORUS 4.3 mg/dL (2.5-4.9)
[2022-09-15 19:28] LABS: PROTHROMBIN TIME 10.8 sec (9.6-11.0)
[2022-09-15 19:30] LABS: INDEX HEMOLYSI 1 (1-3)
[2022-09-15 19:45] LABS: FERRITIN 90 ng/mL (22-322)
[2022-09-15 20:04] LABS: VITAMIN B12 SERUM 911 pg/mL (211-911)
[2022-09-15] MEDS: INSULIN LISPRO 100 UNITS/ML SUBCUT SCH (21:00)
[2022-09-15] MEDS: BLOOD SUGAR DIAGNOSTIC STRIP TEST SCH (21:12)
[2022-09-15] MEDS: LEVETIRACETAM 500MG TABLET PO SCH (21:12)
[2022-09-15] MEDS: AMLODIPINE 5MG TABLET PO SCH (21:12)
[2022-09-15 21:50] VITALS: BP 159/94; PULSE 88; RESP 20; TEMP 98.2
[2022-09-16 00:09] VITALS: BP 149/90; PULSE 94; RESP 20; TEMP 98
[2022-09-16] MEDS: LORAZEPAM 0.5MG TABLET PO PRN ×2 (02:47→23:10)
[2022-09-16] MEDS: ACETAMINOPHEN 325MG TABLET PO PRN ×3 (02:48→23:11)
[2022-09-16 04:02] VITALS: BP 148/81; PULSE 96; RESP 20; TEMP 98.3
[2022-09-16] MEDS: BLOOD SUGAR DIAGNOSTIC STRIP TEST SCH ×4 (06:44→20:48)
[2022-09-16 08:00] VITALS: BP 136/82; PULSE 90; RESP 18; TEMP 97.1
[2022-09-16] MEDS: INSULIN LISPRO 100 UNITS/ML SUBCUT SCH ×4 (08:10→20:48)
[2022-09-16 08:52] LABS: BILIRUBIN DIRECT 0.1 mg/dL (0.0-0.2); BILIRUBIN TOTAL 0.6 mg/dL (0.1-1.0); PROTEIN TOTAL 6.3 g/dL (6.0-8.3)
[2022-09-16] MEDS: LEVETIRACETAM 500MG TABLET PO SCH ×2 (09:32→20:48)
[2022-09-16] MEDS: AMLODIPINE 5MG TABLET PO SCH (09:32)
[2022-09-16 12:00] VITALS: BP 121/50; PULSE 85; RESP 18; TEMP 97.4
[2022-09-16] MEDS: DEXAMETHASONE 4MG/ML 1ML VIAL IV SCH ×3 (12:38→23:11)
[2022-09-16 16:00] VITALS: BP 129/49; PULSE 82; RESP 20; TEMP 97.1
[2022-09-16 20:00] VITALS: BP 164/68; PULSE 98; RESP 20; TEMP 98.4
[2022-09-17] VITALS: BP 110/71; PULSE 94; RESP 16; TEMP 98.1
[2022-09-17 01:48] LABS: CLARITY URINE CLEAR (CLEAR); COLOR URINE DARK YELLOW (YELLOW); GLUCOSE URINE NEGATIVE (NEGATIVE); KETONES URINE 1+ (NEGATIVE); LEUKOCYTE ESTERASE URINE NEGATIVE (NEGATIVE); NITRITE URINE NEGATIVE (NEGATIVE); OCCULT BLOOD URINE NEGATIVE (NEGATIVE); PROTEIN URINE TRACE (NEGATIVE); SPECIFIC GRAVITY URINE 1.027 (1.005-1.030)
[2022-09-17 02:04] LABS: *AMPHETAMINES SCREEN URINE NEGATIVE (NEGATIVE); *BARBITURATES SCREEN URINE NEGATIVE (NEGATIVE); *BENZODIAZEPINES SCREEN URINE NEGATIVE (NEGATIVE); *COCAINE SCREEN URINE PRESUMTIVE POSITIVE (NEGATIVE); CANNABINOID URINE SCREEN NEGATIVE (NEGATIVE); ECSTASY MDMA SCREEN URINE NEGATIVE (NEGATIVE); METHADONE URINE SCREEN NEGATIVE (NEGATIVE); OPIATES URINE SCREEN NEGATIVE (NEGATIVE); PHENCYCLIDINE URINE SCREEN NEGATIVE (NEGATIVE)
[2022-09-17 02:49] LABS: SQUAMOUS EPITHELIAL CELL URINE FEW /lpf (RARE/1+)
[2022-09-17 02:50] LABS: RBC URINE 0-2 /hpf (0-2); WBC URINE 0-2 /hpf (0-2)
[2022-09-17 02:52] LABS: BACTERIA URINE NONE SEEN
[2022-09-17 04:00] VITALS: BP 138/88; PULSE 86; RESP 16; TEMP 98.7
[2022-09-17] MEDS: DEXAMETHASONE 4MG/ML 1ML VIAL IV SCH ×2 (05:09→12:41)
[2022-09-17] MEDS: BLOOD SUGAR DIAGNOSTIC STRIP TEST SCH ×2 (06:40→12:34)
[2022-09-17] MEDS: INSULIN LISPRO 100 UNITS/ML SUBCUT SCH ×2 (07:36→12:34)
[2022-09-17 08:00] VITALS: BP 130/75; PULSE 96; RESP 18; TEMP 97.4
[2022-09-17] MEDS: AMLODIPINE 5MG TABLET PO SCH (09:15)
[2022-09-17] MEDS: LEVETIRACETAM 500MG TABLET PO SCH (09:15)
[2022-09-17 12:00] VITALS: BP 138/79; PULSE 100; RESP 18; TEMP 98.4
[2022-09-17 14:18] VITALS: BP 138/79; PULSE 64; TEMP 98.4; O2SAT 100
[2022-09-17 16:00] VITALS: BP 121/67; PULSE 68; RESP 20; TEMP 97.7
[2022-09-20 10:12] LABS: AMPHETAMINE SCREEN Negative ng/mL (Cutoff:50); BARBITURATE SCREEN Negative ug/mL (Cutoff:0.1); BENZODIAZEPINE SCREEN Negative ng/mL (Cutoff:20); CANNABINOID SCREEN Negative ng/mL (Cutoff:5); OPIATES SCREEN Negative ng/mL (Cutoff:5); OXYCODONE SCREEN Negative ng/mL (Cutoff:5); PHENCYCLIDINE SCREEN Negative ng/mL (Cutoff:8)
== END 2022-09-17 17:20 | DRG 918 ==
LOC: ER 14:45 → 7WST 17:51 → EDBEDREQSVC 20:27
PROVIDERS: ADMIT Internal Medicine; ATTEND Internal Medicine
DX: T40.5X1A Poisoning by cocaine, accidental (unintentional), initial encounter (principal); G81.90 Hemiplegia, unspecified affecting unspecified side; F14.10 Cocaine abuse, uncomplicated; I10 Essential (primary) hypertension; J44.9 Chronic obstructive pulmonary disease, unspecified; F17.200 Nicotine dependence, unspecified, uncomplicated; I11.0 Hypertensive heart disease with heart failure; D64.9 Anemia, unspecified; R56.9 Unspecified convulsions; R29.810 Facial weakness; K21.9 Gastro-esophageal reflux disease without esophagitis; I50.9 Heart failure, unspecified; Z79.51 Long term (current) use of inhaled steroids; Z79.899 Other long term (current) drug therapy; Z85.118 Personal history of other malignant neoplasm of bronchus and lung
CPT/HCPCS: 36415; 71045; 76604; 76700; 80053; 80076; 80305; 80307; 80320; 81003; 82550; 82607; 82728; 82962; 83036; 83540; 83550; 83735; 83880; 84100; 84153; 84484; 85025; 93005; 93880; 93970; 99291; J1100; A4315; G0103

== ENCOUNTER 2023-05-06 12:54 | Emergency (ER) | payer MEDICARE, MEDICAID ==
[~2023-05-06] VITALS: Ht 188 cm; Wt 61.0 kg
[2023-05-06] MEDS: DIATR MEGLU/DIATRIZOATE SOLN 30ML ONE (16:29)
[2023-05-06 17:05] VITALS: BP 144/89; PULSE 86; RESP 16; TEMP 98.4
[2023-05-09] MEDS ORDERED: SULF1TAB48 MT (16:10)
== END 2023-05-06 17:06 | disposition home or self-care (01) ==
LOC: ER 13:38
DX: Z43.1 Encounter for attention to gastrostomy (principal); D64.9 Anemia, unspecified; I50.9 Heart failure, unspecified; J44.9 Chronic obstructive pulmonary disease, unspecified; K21.9 Gastro-esophageal reflux disease without esophagitis; I11.0 Hypertensive heart disease with heart failure; F10.20 Alcohol dependence, uncomplicated; F14.10 Cocaine abuse, uncomplicated; Z85.9 Personal history of malignant neoplasm, unspecified; Z87.01 Personal history of pneumonia (recurrent); Z86.73 Personal history of transient ischemic attack (TIA), and cerebral infarction without residual deficits; Z79.899 Other long term (current) drug therapy
CPT/HCPCS: 99284; 43762; 74018; Q9963; 99283

== ENCOUNTER 2023-06-19 01:32 | Inpatient (IN) | payer MEDICARE, MEDICAID ==
[~2023-06-19] VITALS: Ht 213.4 cm; Wt 60.8 kg
[~2023-06-19 01:32] MED LIST changes: -DOCU-138 MT; -MIDO5TAB4 PO; -NICO-645 TD; -OMEP40CA20 MT; -P20 MT; +SULF1TAB48 MT
[2023-06-19] MEDS: ONDANSETRON HCL 4MG/2ML INJ IV STA (02:26)
[2023-06-19] MEDS: SODIUM CHLORIDE 0.9% 1,000 ML IV ONE (03:28)
[2023-06-19 03:36] LABS: BASOPHILS % 0.3 % (0.0-2.0); EOSINOPHILS % 0.6 % (0.0-5.0); HEMATOCRIT. 25.5 % (42.0-52.0); HEMOGLOBIN. 7.9 g/dL (14.0-18.0); LYMPHOCYTES % 8.4 % (20.0-50.0); MEAN CORPUSCULAR HEMOGLOBIN 23.7 pg (28.0-32.0); MEAN CORPUSCULAR HGB CONC 30.9 g/dL (31.0-37.0); MEAN CORPUSCULAR VOLUME 76.7 fL (80.0-94.0); MEAN PLATELET VOLUME 6.1 fl (7.4-10.4); MONOCYTES % 13.7 % (2.0-8.0); PLATELET 586 x1000/uL (130-400); RED BLOOD CELL COUNT 3.33 mill/uL (4.7-6.1); RED CELL DISTRIBUTION WIDTH 22.4 % (11.6-14.6); WHITE BLOOD COUNT 6.3 x1000/uL (4.5-11.0)
[2023-06-19 03:57] LABS: CALCIUM 10.4 mg/dL (8.7-10.4); CARBON DIOXIDE 22 mEq/L (21-32); CHLORIDE 97 mEq/L (98-107); POTASSIUM 5.2 mEq/L (3.5-5.1); SODIUM 127 mEq/L (136-145)
[2023-06-19 03:58] LABS: ADD RBC MORPHOLOGY YES; DIFFERENTIAL COMMENT 1
[2023-06-19 04:02] LABS: CREATININE 0.5 mg/dL (0.6-1.3); GLUCOSE 89 mg/dL (70-105)
[2023-06-19 04:03] LABS: UREA NITROGEN BLOOD 18 mg/dL (9-23)
[2023-06-19 06:10] LABS: ANISOCYTOSIS 1+; PLATELET ESTIMATE INCREASED
[2023-06-19] MEDS ORDERED: ACETAMINOPHEN 325MG TABLET PO PRN (09:45)
[2023-06-19] MEDS ORDERED: ONDANSETRON HCL 4MG/2ML INJ IV PRN (09:45)
[2023-06-19] MEDS: DEXT 5%/0.45% NACL 1000ML 1,000 ML IV SCH (10:00)
[2023-06-19] MEDS ORDERED: ENOXAPARIN 40MG/0.4ML SYR SUBCUT SCH (10:00)
[2023-06-19] MEDS: SODIUM POLYSTYRENE SULFONATE 15 G/60 ML BOT PR NR (12:24)
[2023-06-19 16:00] VITALS: BP 111/63; PULSE 90; RESP 19; TEMP 97.9
[2023-06-19 17:06] VITALS: BP 96/53; PULSE 94; RESP 20; TEMP 98.2
[2023-06-19 20:00] VITALS: BP 107/65; PULSE 78; RESP 18; TEMP 96.3
[2023-06-20] VITALS (11 sets, daily range): BP systolic 106–127; BP diastolic 59–73; PULSE 81–111; RESP 18–25; TEMP 96–97.9; O2SAT 96
[2023-06-20 05:53] LABS: MEAN CORPUSCULAR HEMOGLOBIN 23.4 pg (28.0-32.0); MEAN CORPUSCULAR HGB CONC 30.1 g/dL (31.0-37.0); MEAN CORPUSCULAR VOLUME 77.6 fL (80.0-94.0); MEAN PLATELET VOLUME 6.1 fl (7.4-10.4); PLATELET 494 x1000/uL (130-400); RED BLOOD CELL COUNT 2.71 mill/uL (4.7-6.1); RED CELL DISTRIBUTION WIDTH 21.8 % (11.6-14.6); WHITE BLOOD COUNT 6.7 x1000/uL (4.5-11.0)
[2023-06-20 06:44] LABS: DIFFERENTIAL COMMENT 1
[2023-06-20 06:45] LABS: HEMATOCRIT. 21.1 % (42.0-52.0); HEMOGLOBIN. 6.3 g/dL (14.0-18.0)
[2023-06-20 12:33] LABS: ALBUMIN 3.1 g/dL (3.2-4.8)
[2023-06-20 13:09] LABS: PREALBUMIN < 5.0 mg/dl (10.0-40.0)
[2023-06-20] MEDS ORDERED: DIATR MEGLU/DIATRIZOATE SOLN 30ML ONE (14:18)
[2023-06-20 18:53] LABS: ANISOCYTOSIS 1+; HYPOCHROMASIA 1+; MICROCYTOSIS 1+; PLATELET ESTIMATE INCREASED
[2023-06-20 21:21] LABS: HEMATOCRIT 27.6 % (42.0-52.0); HEMOGLOBIN 8.8 g/dL (14.0-18.0)
[2023-06-20] MEDS: IPRATROPIUM/ALBUTEROL 0.5-3(2.5)MG/3ML NEB HHN NR (21:22)
[2023-06-20 21:33] LABS: PROTHROMBIN TIME 11.3 sec (9.6-11.0)
[2023-06-20] MEDS: METHYLPREDNISOLONE SOD SUCC 125MG/2ML (ACT-O-VIAL) IV NR (23:12)
[2023-06-20] MEDS: FUROSEMIDE 20MG/2ML VIAL IVP NR (23:13)
[2023-06-20 23:31] LABS: BG BASE EXCESS -1.5 mmol/L (-2.0-2.0); BG CARBOXYHEMOGLOBIN 0.6 % (0.5-1.5); BG DEOXYHEMOGLOBIN 6.8 % (0.0-5.0); BG HCO3 ACT 20.7 mmol/L (22.0-26.0); BG METHEMOGLOBIN 0.3 % (0.0-1.5); BG OXYGEN SATURATION 93.1 % (92.0-98.5); BG OXYHEMOGLOBIN 92.3 % (94.0-97.0); BG PH 7.503 (7.350-7.450); BG TOTAL HEMOGLOBIN 10.4 g/dL (12.0-18.0)
[2023-06-21] VITALS: BP 119/75; PULSE 105; RESP 18; TEMP 96.1
[2023-06-21 03:01] LABS: BG FRACTION INSPIRED OXYGEN 100; BG SAMPLE SITE RIGHT RADIAL; BG VENT MODE MASK - BIPAP
[2023-06-21 03:16] LABS: BG BASE EXCESS -3.2 mmol/L (-2.0-2.0); BG CARBOXYHEMOGLOBIN 0.3 % (0.5-1.5); BG DEOXYHEMOGLOBIN 0.4 % (0.0-5.0); BG FRACTION INSPIRED OXYGEN 100; BG HCO3 ACT 19.4 mmol/L (22.0-26.0); BG METHEMOGLOBIN 0.1 % (0.0-1.5); BG OXYGEN SATURATION 99.6 % (92.0-98.5); BG OXYHEMOGLOBIN 99.2 % (94.0-97.0); BG PCO2 27.9 mmHg (35.0-45.0); BG PH 7.461 (7.350-7.450); BG PO2 270.1 mmHg (75.0-100.0); BG SAMPLE SITE RIGHT RADIAL; BG VENT MODE MASK - NRB
[2023-06-21 04:00] VITALS: BP 127/80; PULSE 95; RESP 18; TEMP 95.4
[2023-06-21 06:53] LABS: CARBON DIOXIDE 19 mEq/L (21-32); CHLORIDE 101 mEq/L (98-107); POTASSIUM 4.6 mEq/L (3.5-5.1); SODIUM 131 mEq/L (136-145)
[2023-06-21 06:54] LABS: CALCIUM 9.6 mg/dL (8.7-10.4)
[2023-06-21 06:58] LABS: IRON 24 ug/dL (65-175)
[2023-06-21 06:59] LABS: CREATININE 0.5 mg/dL (0.6-1.3); GLUCOSE 117 mg/dL (70-105)
[2023-06-21 07:00] LABS: UREA NITROGEN BLOOD 9 mg/dL (9-23)
[2023-06-21 07:01] LABS: TOTAL IRON BINDING CAPACITY 440 ug/dl (250-425)
[2023-06-21 07:08] LABS: FERRITIN 55 ng/mL (22-322); FOLIC ACID (FOLATE) SERUM 12.31 ng/mL (>5.38)
[2023-06-21 07:09] LABS: VITAMIN B12 SERUM 1242 pg/mL (211-911)
[2023-06-21 07:18] LABS: HEMATOCRIT. 28.2 % (42.0-52.0); HEMOGLOBIN. 8.9 g/dL (14.0-18.0); MEAN CORPUSCULAR HEMOGLOBIN 25.2 pg (28.0-32.0); MEAN CORPUSCULAR HGB CONC 31.6 g/dL (31.0-37.0); MEAN CORPUSCULAR VOLUME 79.9 fL (80.0-94.0); MEAN PLATELET VOLUME 6.1 fl (7.4-10.4); PLATELET 461 x1000/uL (130-400); RED BLOOD CELL COUNT 3.54 mill/uL (4.7-6.1); RED CELL DISTRIBUTION WIDTH 20.1 % (11.6-14.6)
[2023-06-21 07:52] LABS: DIFFERENTIAL COMMENT 1
[2023-06-21 08:00] VITALS: BP 126/74; PULSE 102; RESP 22; TEMP 97.7
[2023-06-21] MEDS: IRON SUCROSE COMPLEX 100 MG/5 ML ML IV SCH (10:00)
[2023-06-21 12:00] VITALS: BP 117/70; PULSE 95; RESP 22; TEMP 97.5
[2023-06-21] MEDS ORDERED: NALOXONE HCL 0.4MG/ML VIAL IV PRN (15:00)
[2023-06-21] MEDS ORDERED: DIATR MEGLU/DIATRIZOATE SOLN 30ML ONE ×2 (15:21→18:02)
[2023-06-21 16:00] VITALS: BP 131/77; PULSE 103; RESP 22; TEMP 97.9
[2023-06-21 16:34] LABS: PLATELET ESTIMATE INCREASED
[2023-06-21 16:35] LABS: ANISOCYTOSIS 1+; MICROCYTOSIS 1+
[2023-06-21 20:00] VITALS: BP 115/72; PULSE 77; RESP 22; TEMP 95.2
[2023-06-22] VITALS: BP 132/69; PULSE 89; RESP 18; TEMP 96.1
[2023-06-22 04:00] VITALS: BP 130/73; PULSE 65; RESP 18; TEMP 95.6
[2023-06-22 08:00] VITALS: BP 125/74; PULSE 76; RESP 20; TEMP 96
[2023-06-22] MEDS ORDERED: DIATR MEGLU/DIATRIZOATE SOLN 30ML ONE (11:46)
[2023-06-22 12:00] VITALS: BP 123/69; PULSE 81; RESP 20; TEMP 96
[2023-06-22 16:00] VITALS: BP 128/74; PULSE 79; RESP 19; TEMP 96
[2023-06-22 20:00] VITALS: BP 121/71; PULSE 85; RESP 17; TEMP 97.7
[2023-06-23] VITALS: BP 131/68; PULSE 89; RESP 17; TEMP 97.5
[2023-06-23 04:00] VITALS: BP 114/65; PULSE 80; RESP 19; TEMP 97.5
[2023-06-23 08:00] VITALS: BP 130/72; PULSE 68; RESP 22; TEMP 94.5
[2023-06-23 09:29] LABS: HEMATOCRIT. 29.4 % (42.0-52.0); HEMOGLOBIN. 9.2 g/dL (14.0-18.0); MEAN CORPUSCULAR HEMOGLOBIN 24.9 pg (28.0-32.0); MEAN CORPUSCULAR HGB CONC 31.2 g/dL (31.0-37.0); MEAN CORPUSCULAR VOLUME 79.6 fL (80.0-94.0); MEAN PLATELET VOLUME 5.9 fl (7.4-10.4); PLATELET 447 x1000/uL (130-400); RED CELL DISTRIBUTION WIDTH 20.7 % (11.6-14.6); WHITE BLOOD COUNT 8.2 x1000/uL (4.5-11.0)
[2023-06-23 09:48] LABS: DIFFERENTIAL COMMENT 1
[2023-06-23] MEDS: TRAMADOL 50MG TABLET PO PRN (09:59)
[2023-06-23 12:00] VITALS: BP 107/56; PULSE 84; RESP 20; TEMP 97.5
[2023-06-23 16:00] VITALS: BP 138/77; PULSE 97; RESP 19; TEMP 97.8
[2023-06-23 17:43] VITALS: BP 138/70; PULSE 97; TEMP 98; O2SAT 95
[2023-06-24 01:12] LABS: GIANT PLATELETS FEW; OVALOCYTES 2+; PLATELET ESTIMATE NORMAL; TARGET CELLS 1+
[2023-06-24 01:13] LABS: HYPOCHROMASIA 1+; TEAR DROP CELLS 1+
== END 2023-06-23 19:37 | DRG 356 ==
LOC: ER 01:32 → 5WST 05:20 → 6EST 14:23
PROVIDERS: ADMIT Hospitalist; ATTEND Hospitalist
PROC: 0JB70ZZ Excision of Back Subcutaneous Tissue and Fascia, Open Approach (ICD-10-PCS; principal; 2023-06-23)
DX: K94.23 Gastrostomy malfunction (principal); L89.153 Pressure ulcer of sacral region, stage 3; C71.9 Malignant neoplasm of brain, unspecified; E87.1 Hypo-osmolality and hyponatremia; G93.40 Encephalopathy, unspecified; I69.354 Hemiplegia and hemiparesis following cerebral infarction affecting left non-dominant side; R47.01 Aphasia; Z66 Do not resuscitate; D63.8 Anemia in other chronic diseases classified elsewhere; I11.0 Hypertensive heart disease with heart failure; I50.9 Heart failure, unspecified; G40.909 Epilepsy, unspecified, not intractable, without status epilepticus; D50.9 Iron deficiency anemia, unspecified; E11.9 Type 2 diabetes mellitus without complications; J44.9 Chronic obstructive pulmonary disease, unspecified; R13.12 Dysphagia, oropharyngeal phase; E87.5 Hyperkalemia; I25.10 Atherosclerotic heart disease of native coronary artery without angina pectoris; K21.9 Gastro-esophageal reflux disease without esophagitis; Z92.3 Personal history of irradiation; Z87.891 Personal history of nicotine dependence; Z87.440 Personal history of urinary (tract) infections; Z85.841 Personal history of malignant neoplasm of brain; Z85.118 Personal history of other malignant neoplasm of bronchus and lung
CPT/HCPCS: 36415; 36600; 71045; 74018; 80048; 80061; 82040; 82375; 82607; 82728; 82746; 82805; 82962; 83540; 83550; 83605; 84134; 84145; 85014; 85018; 85025; 85044; 85049; 85379; 85384; 86850; 86900; 86920; 93005; 99285; C1893; J1940; J2930; J7030; P9016; Q9963